=== PATIENT | male | born 1950 | race Hispanic/Latino ===

== ENCOUNTER → 2020-11-08 | Outpatient (CLI) | payer OTHER | END | disposition home or self-care (01) | LOC: RAH 14:10 | PROVIDERS: ATTEND Internal Medicine Cardiovascular Disease | DX: Z13.6 Encounter for screening for cardiovascular disorders (principal) | CPT/HCPCS: 75571 ==

== ENCOUNTER → 2023-10-26 | Outpatient (CLI) | payer OTHER | END | disposition home or self-care (01) | LOC: RAH 11:07 | PROVIDERS: ATTEND Internal Medicine | DX: M25.511 Pain in right shoulder (principal); M25.512 Pain in left shoulder; M41.9 Scoliosis, unspecified; M25.552 Pain in left hip; M25.551 Pain in right hip; M17.10 Unilateral primary osteoarthritis, unspecified knee; M25.561 Pain in right knee; M25.562 Pain in left knee | CPT/HCPCS: 72082; 73030; 73522; 73560 ==